=== PATIENT | male | born 1980 | race Caucasian/White ===

== ENCOUNTER 2019-02-08 17:43 | Emergency (ER) | payer OTHER ==
[~2019-02-08] VITALS: Ht 177.8 cm; Wt 117.9 kg
[~2019-02-08 17:43] MED LIST: ANAPROX DS550 MG PO; ASPIRIN ADULT L81 M2 PO; ATARAX,VISTARIL50 MG PO; AUGMENTIN 875 M1 TAB PO; CEPHALEXIN500 M1 PO; CORTISPORIN 1%-10 M1 OT; FLEXERIL10 MG PO; FLOMAX0.4 MG PO; LISINOPRIL-HYDR1 TA1 PO; METFORMIN HCL1000 MG PO; MOTRIN800 MG PO; NKHM; PREDNISONE20 M1 PO; TOBRADEX 0.1%-0.5 ML OPH; TORADOL10 MG PO; TRIMOX500 MG PO; VICODIN 5-3001 EACH PO; VICODIN 5/500 505 MG PO; VICODIN 500 MG-1 TAB PO
[2019-02-08] MEDS ORDERED: Motrin,Rufen800 MG PO (20:11)
[2019-02-08] MEDS ORDERED: CYCLOBENZAPRINE5 M3 PO (20:11)
== END 2019-02-08 20:18 | disposition home or self-care (01) ==
LOC: ED 17:43
DX: S39.012A Strain of muscle, fascia and tendon of lower back, initial encounter (principal); S70.01XA Contusion of right hip, initial encounter; Z79.899 Other long term (current) drug therapy; Z79.82 Long term (current) use of aspirin; V43.62XA Car passenger injured in collision with other type car in traffic accident, initial encounter; Y93.89 Activity, other specified; Y92.488 Other paved roadways as the place of occurrence of the external cause; Y99.8 Other external cause status

== ENCOUNTER 2021-06-18 11:07 | Inpatient (IN) | payer OTHER ==
[~2021-06-18] VITALS: Ht 175.2 cm; Wt 117.9 kg
[~2021-06-18 11:07] MED LIST changes: +CYCLOBENZAPRINE5 M3 PO; +Motrin,Rufen800 MG PO
[2021-06-18 11:25] VITALS: BP 170/84
[2021-06-18 12:46] LABS: BASO % 0.5 % (0.0-1.0); EOS % 0.8 % (1.0-4.0); HEMATOCRIT 44.7 % (42.0-52.0); LYMPH # 0.8 10*3/uL (1.3-4.4); LYMPH % 19.9 % (27.0-41.0); MEAN CELL VOLUME 94.3 fl (80.0-94.0); MEAN CORPUSCULAR HGB 32.1 pg (27.0-31.0); MEAN PLATELET VOLUME 10.8 fl (9.6-12.3); MONO # 0.4 10*3/uL (0.1-1.0); MONO % 11.1 % (3.0-9.0); NEUT # 2.5 10*3/uL (2.3-7.9); NEUT % 67.2 % (47.0-73.0); PLATELET COUNT AUTOMATED 163 10*3/uL (130-400); RED BLOOD COUNT 4.74 10*6/uL (4.50-5.90); RED CELL DISTRI WIDTH 12.4 % (0-14.5); WHITE BLOOD COUNT 3.8 10*3/uL (4.8-10.8)
[2021-06-18 12:56] LABS: BILIRUBIN Negative (Negative); BLOOD Negative (Negative); CLARITY Clear (Clear); COLOR Yellow (Yellow); GLUCOSE Negative (Negative); KETONE Negative (Negative); LEUKO ESTERASE Negative (Negative); NITRITE Negative (Negative); SPECIFIC GRAVITY 1.015 (1.001-1.030); UROBILINOGEN 0.2 E.U./dl (0.0-1.0)
[2021-06-18 12:59] LABS: ALBUMIN 4.3 gm/dl (3.1-4.5); ALKALINE PHOSPHATASE 71 U/L (45-117); BUN 12 mg/dl (7-24); CHLORIDE 103 mmol/L (98-107); CREATININE 0.81 mg/dL (0.70-1.30); LIPASE 87 U/L (73-393); POTASSIUM 3.4 mmol/L (3.5-5.1); SGOT/AST 72 IU/L (3-35); SGPT/ALT 97 U/L (12-78); SODIUM 137 mmol/L (136-145); TOTAL PROTEIN 8.3 gm/dL (6.4-8.2); TROPONIN I < 0.015 ng/ml (<0.045)
[2021-06-18 13:05] LABS: BACTERIA TRACE; EPITHELIAL CELLS 0-2; RBC 0-2 rbc/hpf (0-2); WBC 0-2 wbc/hpf (0-5)
[2021-06-18] MEDS ORDERED: AMLODIPINE BESYL5 MG PO (23:22)
[2021-06-18] MEDS ORDERED: ACETAMINOPHEN325 M2 PO (23:22)
[2021-06-18] MEDS ORDERED: OMEPRAZOLE40 MG PO (23:22)
[2021-06-18] MEDS ORDERED: VITAMIN D350 MCG PO (23:23)
[2021-06-18] MEDS ORDERED: VITAMIN E180 M1 PO (23:24)
[2021-06-19] MEDS ORDERED: ATORVASTATIN CA10 M1 PO (11:04)
[2021-06-19] MEDS ORDERED: LOW DOSE ASPIRI81 M1 PO (13:07)
== END 2021-06-18 18:54 | disposition left against medical advice (07) | DRG 58 ==
LOC: ED 11:07 → EDHOLD 14:37
PROVIDERS: Physician Assistant; ADMIT Internal Medicine; ATTEND Internal Medicine
DX: R20.2 Paresthesia of skin (principal); R74.01 Elevation of levels of liver transaminase levels; K76.0 Fatty (change of) liver, not elsewhere classified; E78.1 Pure hyperglyceridemia; Z53.29 Procedure and treatment not carried out because of patient's decision for other reasons; Z87.891 Personal history of nicotine dependence; Z79.1 Long term (current) use of non-steroidal anti-inflammatories (NSAID); Z79.82 Long term (current) use of aspirin; Z79.899 Other long term (current) drug therapy; Z82.3 Family history of stroke

== ENCOUNTER 2021-06-18 18:54 | Inpatient (IN) | payer OTHER ==
[~2021-06-18] VITALS: Ht 175.2 cm; Wt 117.9 kg
[2021-06-18 19:23] VITALS: BP 156/89
[2021-06-18] MEDS ORDERED: OMEPRAZOLE40 MG PO (23:22)
[2021-06-18] MEDS ORDERED: AMLODIPINE BESYL5 MG PO (23:22)
[2021-06-18] MEDS ORDERED: ACETAMINOPHEN325 M2 PO (23:22)
[2021-06-18] MEDS ORDERED: VITAMIN D350 MCG PO (23:23)
[2021-06-18] MEDS ORDERED: VITAMIN E180 M1 PO (23:24)
[2021-06-19 02:14] VITALS: BP 147/64
[2021-06-19 05:06] LABS: ALBUMIN 3.6 gm/dl (3.1-4.5); ALKALINE PHOSPHATASE 62 U/L (45-117); BUN 11 mg/dl (7-24); CHLORIDE 104 mmol/L (98-107); CHOLESTEROL 116 mg/dL (<200); CREATININE 0.66 mg/dL (0.70-1.30); LDL CHOLESTEROL 49 mg/dL (9-159); POTASSIUM 3.4 mmol/L (3.5-5.1); SGOT/AST 55 IU/L (3-35); SGPT/ALT 81 U/L (12-78); SODIUM 137 mmol/L (136-145); TOTAL PROTEIN 7.3 gm/dL (6.4-8.2); TRIGLYCERIDES 217 mg/dl (<150)
[2021-06-19 06:06] LABS: BASO % 0.6 % (0.0-1.0); EOS % 1.2 % (1.0-4.0); HEMATOCRIT 42.1 % (42.0-52.0); LYMPH % 31.8 % (27.0-41.0); MEAN CELL VOLUME 95.2 fl (80.0-94.0); MEAN CORPUSCULAR HGB 31.9 pg (27.0-31.0); MEAN CORPUSCULAR HGB CONC 33.5 g/dl (33.0-37.0); MEAN PLATELET VOLUME 11.7 fl (9.6-12.3); MONO # 0.5 10*3/uL (0.1-1.0); MONO % 15.6 % (3.0-9.0); NEUT # 1.7 10*3/uL (2.3-7.9); NEUT % 50.5 % (47.0-73.0); PLATELET COUNT AUTOMATED 138 10*3/uL (130-400); RED BLOOD COUNT 4.42 10*6/uL (4.50-5.90); RED CELL DISTRI WIDTH 12.6 % (0-14.5); WHITE BLOOD COUNT 3.3 10*3/uL (4.8-10.8)
[2021-06-19 08:17] VITALS: BP 149/61
[2021-06-19] MEDS ORDERED: ATORVASTATIN CA10 M1 PO (11:04)
[2021-06-19] MEDS ORDERED: LOW DOSE ASPIRI81 M1 PO (13:07)
[2021-06-20 06:07] LABS: HEP B CORE AB, IGM Negative (Negative); HEPATITIS B SURFACE AG Negative (Negative); HEPATITIS C VIRUS ANTIBODY <0.1 s/co (0.0-0.9)
== END 2021-06-19 19:12 | disposition home or self-care (01) | DRG 48 ==
LOC: ED 18:54 → EDHOLD 23:23 → 5E 06-19 14:14 → EDHOLD 06-19 19:12
PROVIDERS: Internal Medicine; ADMIT Internal Medicine; ATTEND Internal Medicine
DX: G62.9 Polyneuropathy, unspecified (principal); R55 Syncope and collapse; R20.2 Paresthesia of skin; D72.819 Decreased white blood cell count, unspecified; I10 Essential (primary) hypertension; E78.5 Hyperlipidemia, unspecified; R74.01 Elevation of levels of liver transaminase levels; Z83.3 Family history of diabetes mellitus; Z82.3 Family history of stroke; Z79.1 Long term (current) use of non-steroidal anti-inflammatories (NSAID); Z79.899 Other long term (current) drug therapy

== ENCOUNTER 2022-01-14 18:55 | Emergency (ER) | payer OTHER ==
[~2022-01-14] VITALS: Ht 175.2 cm; Wt 113.4 kg
[~2022-01-14 18:55] MED LIST changes: +ACETAMINOPHEN325 M2 PO; +AMLODIPINE BESYL5 MG PO; +ATORVASTATIN CA10 M1 PO; +LOW DOSE ASPIRI81 M1 PO; +OMEPRAZOLE40 MG PO; +VITAMIN D350 MCG PO; +VITAMIN E180 M1 PO
== END 2022-01-14 20:00 | disposition home or self-care (01) ==
LOC: ED 18:55
DX: S05.01XA Injury of conjunctiva and corneal abrasion without foreign body, right eye, initial encounter (principal); Z79.899 Other long term (current) drug therapy; Z90.49 Acquired absence of other specified parts of digestive tract; Z87.891 Personal history of nicotine dependence; W22.8XXA Striking against or struck by other objects, initial encounter; Y93.89 Activity, other specified; Y92.89 Other specified places as the place of occurrence of the external cause; Y99.8 Other external cause status

== ENCOUNTER → 2022-04-15 | Outpatient (CLI) | payer OTHER | END | disposition home or self-care (01) | LOC: CT 08:55 | PROVIDERS: ATTEND Surgery | DX: K42.9 Umbilical hernia without obstruction or gangrene (principal); K76.0 Fatty (change of) liver, not elsewhere classified ==

== ENCOUNTER → 2022-05-27 | Day surgery (SDC) | payer OTHER ==
[2022-05-24 13:34] VITALS: BP 152/78
[2022-05-24 15:09] LABS: BASO % 0.5 % (0.0-1.0); EOS # 0.2 10*3/uL (0.0-0.4); EOS % 2.1 % (1.0-4.0); HEMATOCRIT 41.4 % (42.0-52.0); LYMPH # 1.5 10*3/uL (1.3-4.4); LYMPH % 19.9 % (27.0-41.0); MEAN CELL VOLUME 93.7 fl (80.0-94.0); MEAN CORPUSCULAR HGB 31.9 pg (27.0-31.0); MEAN CORPUSCULAR HGB CONC 34.1 g/dl (33.0-37.0); MEAN PLATELET VOLUME 10.7 fl (9.6-12.3); MONO # 0.6 10*3/uL (0.1-1.0); MONO % 7.5 % (3.0-9.0); NEUT # 5.2 10*3/uL (2.3-7.9); NEUT % 69.5 % (47.0-73.0); PLATELET COUNT AUTOMATED 193 10*3/uL (130-400); RED BLOOD COUNT 4.42 10*6/uL (4.50-5.90); RED CELL DISTRI WIDTH 13.2 % (0-14.5); WHITE BLOOD COUNT 7.5 10*3/uL (4.8-10.8)
[2022-05-24 15:26] LABS: BUN 13 mg/dl (7-24); CHLORIDE 110 mmol/L (98-107); CREATININE 0.76 mg/dL (0.70-1.30); SODIUM 141 mmol/L (136-145)
[~2022-05-27] VITALS: Ht 175.2 cm; Wt 127.0 kg
[~2022-05-27] MED LIST changes: +COLACE100 MG PO; +FENOFIBRATE48 M1 PO; +ONDANSETRON HYDR4 M1 PO; +PERCOCET 5-3251 EACH PO; +ZESTORETIC 20-1 EACH PO
[2022-05-27 09:30] VITALS: BP 117/96
[2022-05-27 11:15] VITALS: BP 143/86
[2022-05-27 11:30] VITALS: BP 162/80
[2022-05-27 11:45] VITALS: BP 149/61
[2022-05-27 12:00] VITALS: BP 165/45
[2022-05-27 12:15] VITALS: BP 132/60
== END | disposition home or self-care (01) ==
LOC: SDC 05-24 13:15
PROVIDERS: ATTEND Surgery
DX: K43.6 Other and unspecified ventral hernia with obstruction, without gangrene (principal); K21.9 Gastro-esophageal reflux disease without esophagitis; I10 Essential (primary) hypertension; E78.00 Pure hypercholesterolemia, unspecified; Z79.899 Other long term (current) drug therapy

== ENCOUNTER 2022-06-06 21:47 | Emergency (ER) | payer OTHER ==
[~2022-06-06] VITALS: Ht 175.2 cm; Wt 127.0 kg
== END 2022-06-07 04:13 | disposition home or self-care (01) ==
LOC: ED 21:47
DX: M79.18 Myalgia, other site (principal); E78.5 Hyperlipidemia, unspecified; I10 Essential (primary) hypertension; Z79.899 Other long term (current) drug therapy; Z90.49 Acquired absence of other specified parts of digestive tract; Z98.890 Other specified postprocedural states

== ENCOUNTER → 2022-09-21 | Outpatient (CLI) | payer OTHER ==
[2022-09-21 18:00] LABS: ALKALINE PHOSPHATASE 88 U/L (46-116); BUN 13 mg/dl (9-23); CHLORIDE 94 mmol/L (98-107); CHOLESTEROL 231 mg/dL (<200); CREATININE 0.87 mg/dL (0.70-1.30); POTASSIUM 4.1 mmol/L (3.4-5.1); SGPT/ALT 51 U/L (10-49); SODIUM 127 mmol/L (136-145); TOTAL PROTEIN 7.2 gm/dL (6.0-8.0)
[2022-09-21 18:12] LABS: TRIGLYCERIDES 1387 mg/dl (<150)
== END | disposition home or self-care (01) ==
LOC: LAB 16:34
PROVIDERS: ATTEND Internal Medicine
DX: E11.9 Type 2 diabetes mellitus without complications (principal)

== ENCOUNTER → 2024-10-01 | Outpatient (CLI) | payer OTHER ==
[2024-10-01 12:59] LABS: BASO % 0.5 % (0.0-1.0); EOS # 0.2 10*3/uL (0.0-0.4); EOS % 2.9 % (1.0-4.0); HEMATOCRIT 41.5 % (42.0-52.0); MEAN CELL VOLUME 95.4 fl (80.0-94.0); MEAN CORPUSCULAR HGB 32.4 pg (27.0-31.0); MEAN PLATELET VOLUME 10.6 fl (9.6-12.3); MONO # 0.6 10*3/uL (0.1-1.0); MONO % 10.4 % (3.0-9.0); NEUT # 3.4 10*3/uL (2.3-7.9); PLATELET COUNT AUTOMATED 193 10*3/uL (130-400); RED BLOOD COUNT 4.35 10*6/uL (4.50-5.90); RED CELL DISTRI WIDTH 12.9 % (0-14.5); WHITE BLOOD COUNT 5.6 10*3/uL (4.8-10.8)
[2024-10-01 13:46] LABS: ALKALINE PHOSPHATASE 50 U/L (46-116); BUN 13 mg/dl (9-23); CHLORIDE 104 mmol/L (98-107); FREE T4 1.09 ng/dl (0.89-1.76); POTASSIUM 4.2 mmol/L (3.4-5.1); SGPT/ALT 33 U/L (5-49); TOTAL PROTEIN 7.4 gm/dL (6.0-8.0); VITAMIN D, 25-HYDROXY 23.3 ng/mL (30-100)
== END | disposition home or self-care (01) ==
LOC: LAB 12:21
PROVIDERS: ATTEND Internal Medicine
DX: Z11.59 Encounter for screening for other viral diseases (principal); I10 Essential (primary) hypertension

== ENCOUNTER 2025-02-04 08:06 | Emergency (ER) | payer OTHER ==
[~2025-02-04] VITALS: Ht 175.2 cm; Wt 125.4 kg
[2025-02-04] MEDS ORDERED: Ketorolac Tromethamine 30 MG/ML VIAL IM ONE (08:35)
[2025-02-04] MEDS ORDERED: METHOCARBAMOL750 M1 PO (08:54)
[2025-02-04] MEDS ORDERED: PREDNISONE20 M1 PO (08:54)
== END 2025-02-04 09:09 | disposition home or self-care (01) ==
LOC: ED 08:06
DX: M54.12 Radiculopathy, cervical region (principal); M43.6 Torticollis; Z79.899 Other long term (current) drug therapy; Z90.49 Acquired absence of other specified parts of digestive tract; Z87.891 Personal history of nicotine dependence